=== PATIENT | male | born 1945 | race Caucasian/White ===

== ENCOUNTER → 2017-08-21 | Outpatient (CLI) | payer MEDICARE, BC, MEDICAID | END | disposition home or self-care (01) | LOC: C/S 10:57 | DX: J84.9 Interstitial pulmonary disease, unspecified (principal); J47.9 Bronchiectasis, uncomplicated; I27.20 Pulmonary hypertension, unspecified; K31.89 Other diseases of stomach and duodenum; M46.04 Spinal enthesopathy, thoracic region; D18.09 Hemangioma of other sites | CPT/HCPCS: 71250 ==

== ENCOUNTER 2017-10-05 19:14 | Emergency (ER) | payer MEDICARE, BC ==
[2017-10-05] MEDS: KETOROLAC 15 MG INJ IM (21:24)
== END 2017-10-06 02:09 | disposition home or self-care (01) ==
LOC: E/R 10-06 02:09
DX: J81.1 Chronic pulmonary edema (principal); I10 Essential (primary) hypertension; R40.2142 Coma scale, eyes open, spontaneous, at arrival to emergency department; R40.2362 Coma scale, best motor response, obeys commands, at arrival to emergency department; Z93.0 Tracheostomy status
CPT/HCPCS: 71045; 94002; 94003; 96372; 99284-25

== ENCOUNTER 2017-11-08 22:25 | Inpatient (IN) | payer BC, MEDICARE ==
[2017-11-08 23:34] LABS: ADD MAN DIFF? NO
[2017-11-08 23:39] LABS: BASOPHIL # 0.1 10^3/ul (0.0-0.1); BASOPHILS % 1.1 % (0.0-2.0); EOSINOPHILS # 0.7 10^3/ul (0.0-0.5); EOSINOPHILS % 7.3 % (0.0-7.0); HEMOGLOBIN 10.9 g/dl (14.0-18.0); LYMPHOCYTES # 1.8 10^3/ul (0.8-2.9); LYMPHOCYTES % 20.1 % (15.0-51.0); MEAN CORPUSCULAR HEMOGLOBIN 29.1 pg (29.0-33.0); MEAN CORPUSCULAR HGB CONC 34.1 g/dl (32.0-37.0); MEAN CORPUSCULAR VOLUME 85.6 fl (82.0-101.0); MONOCYTE # 0.7 10^3/ul (0.3-0.9); MONOCYTES % 7.3 % (0.0-11.0); NEUTROPHIL # 5.8 10^3/ul (1.6-7.5); NEUTROPHILS % 63.8 % (39.0-77.0); PLATELET COUNT 248 10^3/UL (140-415); RED BLOOD COUNT 3.74 10^6/ul (4.70-6.10); RED CELL DISTRIBUTION WIDTH 14.6 % (11.5-14.5)
[2017-11-08 23:45] LABS: Allen Test ACCEPTAB; Arterial Blood Gas Oxygen Sat 98.7 mmHG (95.0-100.0); Arterial COHb 0.1 % (0.0-3.0); Arterial HCO3 26.7 mmol/L (22.0-26.0); Arterial MetHb 0.6 % (0.0-1.5); Arterial Total Hemglobin 11.2 g/dl (12.0-18.0); Arterial pCO2 37.3 mmhg (35-45); MODE VENT - AC; Site Right Radial
[2017-11-08 23:59] LABS: INR 1.01; PROTIME 13.4 Sec (11.9-14.9)
[2017-11-09] LABS: ALANINE AMINOTRANSFERASE 24 IU/L (13-69); ALBUMIN 4.3 g/dl (3.3-4.9); ALBUMIN/GLOBULIN RATIO 1.13; ALKALINE PHOSPHATASE 131 IU/L (42-121); ANION GAP 17 (8-16); ASPARTATE AMINO TRANSFERASE 36 IU/L (15-46); BLOOD UREA NITROGEN 22 mg/dl (7-20); CALCIUM 10.1 mg/dl (8.4-10.2); CARBON DIOXIDE 30 mmol/L (21-31); CHLORIDE 94 mmol/L (97-110); CREATININE 1.01 mg/dl (0.61-1.24); GLUCOSE 114 mg/dl (70-220); LIPASE 158 U/L (23-300); POTASSIUM 4.7 mmol/L (3.5-5.1); SODIUM 136 mmol/L (135-144); TOTAL PROTEIN 8.1 g/dl (6.1-8.1)
[2017-11-09 00:01] LABS: PARTIAL THROMBOPLASTIN TIME 44.7 Sec (25.0-35.0)
[2017-11-09] MEDS: PIPER-TAZO 3.375 GM IV (PMX) 100 ML IVPB ×4 (01:59→23:54)
[2017-11-09] MEDS ORDERED: NACL 0.9% 3 ML SYG IV (12:00)
[2017-11-09] MEDS ORDERED: ONDANSETRON 4 MG INJ IV (12:00)
[2017-11-09] MEDS ORDERED: ACETAMINOPHEN 160 MG/5ML CUP (17:28)
[2017-11-09] MEDS: ACETAMINOPHEN 325 MG TAB PO (17:35)
[2017-11-09] MEDS: FAMOTIDINE 20 MG INJ IV (20:04)
[2017-11-10 05:42] LABS: ADD MAN DIFF? NO
[2017-11-10 05:45] LABS: WHITE BLOOD COUNT 8.9 10^3/ul (4.8-10.8)
[2017-11-10 05:45] LABS: BASOPHIL # 0.1 10^3/ul (0.0-0.1); BASOPHILS % 1.1 % (0.0-2.0); EOSINOPHILS # 0.6 10^3/ul (0.0-0.5); EOSINOPHILS % 6.4 % (0.0-7.0); HEMATOCRIT 31.6 % (42.0-52.0); HEMOGLOBIN 10.8 g/dl (14.0-18.0); LYMPHOCYTES # 1.6 10^3/ul (0.8-2.9); LYMPHOCYTES % 17.8 % (15.0-51.0); MEAN CORPUSCULAR HEMOGLOBIN 29.1 pg (29.0-33.0); MEAN CORPUSCULAR HGB CONC 34.2 g/dl (32.0-37.0); MEAN CORPUSCULAR VOLUME 85.2 fl (82.0-101.0); MEAN PLATELET VOLUME 9.3 fl (7.4-10.4); MONOCYTE # 0.6 10^3/ul (0.3-0.9); NEUTROPHILS % 67.5 % (39.0-77.0); PLATELET COUNT 260 10^3/UL (140-415); RED BLOOD COUNT 3.71 10^6/ul (4.70-6.10); RED CELL DISTRIBUTION WIDTH 14.6 % (11.5-14.5)
[2017-11-10] MEDS: PIPER-TAZO 3.375 GM IV (PMX) 100 ML IVPB ×3 (06:06→18:28)
[2017-11-10 07:30] LABS: ALANINE AMINOTRANSFERASE 31 IU/L (13-69); ALBUMIN 4.2 g/dl (3.3-4.9); ALBUMIN/GLOBULIN RATIO 1.13; ALKALINE PHOSPHATASE 122 IU/L (42-121); ANION GAP 18 (8-16); ASPARTATE AMINO TRANSFERASE 35 IU/L (15-46); BLOOD UREA NITROGEN 19 mg/dl (7-20); CALCIUM 10.2 mg/dl (8.4-10.2); CARBON DIOXIDE 24 mmol/L (21-31); CHLORIDE 98 mmol/L (97-110); CREATININE 0.86 mg/dl (0.61-1.24); GLUCOSE 103 mg/dl (70-220); POTASSIUM 4.2 mmol/L (3.5-5.1); SODIUM 136 mmol/L (135-144); TOTAL PROTEIN 7.9 g/dl (6.1-8.1)
[2017-11-10] MEDS: FAMOTIDINE 20 MG INJ IV ×2 (09:16→22:22)
[2017-11-10] MEDS: ENOXAPARIN 30 MG/0.3 ML SYG SC (09:16)
[2017-11-10] MEDS: ACETAMINOPHEN 325 MG TAB PO (15:27)
[2017-11-10] MEDS: morphine 2 MG INJ IV (22:23)
[2017-11-11] MEDS: PIPER-TAZO 3.375 GM IV (PMX) 100 ML IVPB ×5 (00:03→23:43)
[2017-11-11] MEDS: ENOXAPARIN 30 MG/0.3 ML SYG SC (08:27)
[2017-11-11] MEDS: FAMOTIDINE 20 MG INJ IV ×2 (08:27→20:15)
[2017-11-11 14:13] LABS: ADD MAN DIFF? NO
[2017-11-11 14:14] LABS: BASOPHIL # 0.1 10^3/ul (0.0-0.1); BASOPHILS % 0.6 % (0.0-2.0); EOSINOPHILS # 0.4 10^3/ul (0.0-0.5); EOSINOPHILS % 3.6 % (0.0-7.0); HEMATOCRIT 28.8 % (42.0-52.0); HEMOGLOBIN 9.9 g/dl (14.0-18.0); LYMPHOCYTES # 1.2 10^3/ul (0.8-2.9); LYMPHOCYTES % 12.5 % (15.0-51.0); MEAN CORPUSCULAR HEMOGLOBIN 29.8 pg (29.0-33.0); MEAN CORPUSCULAR HGB CONC 34.4 g/dl (32.0-37.0); MEAN CORPUSCULAR VOLUME 86.7 fl (82.0-101.0); MEAN PLATELET VOLUME 9.1 fl (7.4-10.4); MONOCYTE # 0.7 10^3/ul (0.3-0.9); MONOCYTES % 6.9 % (0.0-11.0); NEUTROPHIL # 7.4 10^3/ul (1.6-7.5); NEUTROPHILS % 76.1 % (39.0-77.0); PLATELET COUNT 244 10^3/UL (140-415); RED BLOOD COUNT 3.32 10^6/ul (4.70-6.10); RED CELL DISTRIBUTION WIDTH 14.7 % (11.5-14.5)
[2017-11-11 14:14] LABS: WHITE BLOOD COUNT 9.7 10^3/ul (4.8-10.8)
[2017-11-11 14:30] LABS: ANION GAP 15 (8-16); BLOOD UREA NITROGEN 16 mg/dl (7-20); CALCIUM 9.7 mg/dl (8.4-10.2); CARBON DIOXIDE 28 mmol/L (21-31); CHLORIDE 98 mmol/L (97-110); CREATININE 0.83 mg/dl (0.61-1.24); GLUCOSE 114 mg/dl (70-220); POTASSIUM 3.7 mmol/L (3.5-5.1); SODIUM 137 mmol/L (135-144)
[2017-11-11] MEDS: VANCOMYCIN HCL 250 MG/5ML POSYG PO ×2 (17:50→23:43)
[2017-11-11] MEDS: ACETAMINOPHEN 325 MG TAB PO (21:43)
[2017-11-12] MEDS: VANCOMYCIN HCL 250 MG/5ML POSYG PO ×3 (06:01→17:33)
[2017-11-12] MEDS: PIPER-TAZO 3.375 GM IV (PMX) 100 ML IVPB ×2 (06:01→12:45)
[2017-11-12 06:04] LABS: ADD MAN DIFF? NO
[2017-11-12 06:07] LABS: WHITE BLOOD COUNT 7.6 10^3/ul (4.8-10.8)
[2017-11-12 06:07] LABS: BASOPHIL # 0.1 10^3/ul (0.0-0.1); EOSINOPHILS # 0.6 10^3/ul (0.0-0.5); EOSINOPHILS % 7.5 % (0.0-7.0); HEMATOCRIT 29.4 % (42.0-52.0); HEMOGLOBIN 9.8 g/dl (14.0-18.0); LYMPHOCYTES # 1.6 10^3/ul (0.8-2.9); LYMPHOCYTES % 20.4 % (15.0-51.0); MEAN CORPUSCULAR HGB CONC 33.3 g/dl (32.0-37.0); MEAN PLATELET VOLUME 9.7 fl (7.4-10.4); MONOCYTE # 0.7 10^3/ul (0.3-0.9); MONOCYTES % 8.6 % (0.0-11.0); NEUTROPHIL # 4.8 10^3/ul (1.6-7.5); NEUTROPHILS % 62.2 % (39.0-77.0); PLATELET COUNT 246 10^3/UL (140-415); RED BLOOD COUNT 3.38 10^6/ul (4.70-6.10); RED CELL DISTRIBUTION WIDTH 14.6 % (11.5-14.5)
[2017-11-12 06:33] LABS: ANION GAP 16 (8-16); BLOOD UREA NITROGEN 15 mg/dl (7-20); CALCIUM 9.8 mg/dl (8.4-10.2); CARBON DIOXIDE 28 mmol/L (21-31); CHLORIDE 101 mmol/L (97-110); CREATININE 0.79 mg/dl (0.61-1.24); GLUCOSE 97 mg/dl (70-220); POTASSIUM 3.8 mmol/L (3.5-5.1); SODIUM 141 mmol/L (135-144)
[2017-11-12] MEDS: FAMOTIDINE 20 MG INJ IV ×2 (09:20→19:50)
[2017-11-12] MEDS: ENOXAPARIN 30 MG/0.3 ML SYG SC (09:25)
[2017-11-12] MEDS: CEFTRIAXONE 1 GM/50 ML (PMX) 50 ML IVPB (17:33)
[2017-11-12] MEDS: ACETAMINOPHEN 325 MG TAB PO (19:50)
[2017-11-13] MEDS: VANCOMYCIN HCL 250 MG/5ML POSYG PO ×4 (01:05→17:45)
[2017-11-13 07:02] LABS: ADD MAN DIFF? NO
[2017-11-13 07:05] LABS: BASOPHIL # 0.1 10^3/ul (0.0-0.1); EOSINOPHILS # 0.6 10^3/ul (0.0-0.5); EOSINOPHILS % 8.6 % (0.0-7.0); HEMATOCRIT 28.4 % (42.0-52.0); HEMOGLOBIN 9.5 g/dl (14.0-18.0); LYMPHOCYTES # 1.4 10^3/ul (0.8-2.9); LYMPHOCYTES % 20.9 % (15.0-51.0); MEAN CORPUSCULAR HEMOGLOBIN 29.1 pg (29.0-33.0); MEAN CORPUSCULAR HGB CONC 33.5 g/dl (32.0-37.0); MEAN CORPUSCULAR VOLUME 86.9 fl (82.0-101.0); MEAN PLATELET VOLUME 9.6 fl (7.4-10.4); MONOCYTE # 0.6 10^3/ul (0.3-0.9); MONOCYTES % 9.2 % (0.0-11.0); NEUTROPHIL # 4.1 10^3/ul (1.6-7.5); PLATELET COUNT 261 10^3/UL (140-415); RED BLOOD COUNT 3.27 10^6/ul (4.70-6.10); RED CELL DISTRIBUTION WIDTH 14.6 % (11.5-14.5)
[2017-11-13 07:05] LABS: WHITE BLOOD COUNT 6.8 10^3/ul (4.8-10.8)
[2017-11-13 07:26] LABS: ANION GAP 14 (8-16); BLOOD UREA NITROGEN 13 mg/dl (7-20); CALCIUM 9.6 mg/dl (8.4-10.2); CARBON DIOXIDE 29 mmol/L (21-31); CHLORIDE 101 mmol/L (97-110); CREATININE 0.74 mg/dl (0.61-1.24); GLUCOSE 104 mg/dl (70-220); POTASSIUM 3.6 mmol/L (3.5-5.1); SODIUM 140 mmol/L (135-144)
[2017-11-13] MEDS: FAMOTIDINE 20 MG INJ IV ×2 (09:34→20:47)
[2017-11-13] MEDS: ENOXAPARIN 30 MG/0.3 ML SYG SC (09:39)
[2017-11-13] MEDS: PROPOFOL 60 ML (13:00)
[2017-11-13] MEDS: CEFTRIAXONE 1 GM/50 ML (PMX) 50 ML IVPB (17:45)
[2017-11-14] MEDS ORDERED: ALBUTEROL/IPRATROPIUM (NEB) 3 ML AMP HHN (01:30)
[2017-11-14] MEDS: GUAIFENESIN/DM 5ML CUP PO ×2 (01:43→21:40)
[2017-11-14] MEDS: morphine 2 MG INJ IV ×2 (01:43→21:40)
[2017-11-14] MEDS: VANCOMYCIN HCL 250 MG/5ML POSYG PO ×4 (06:38→17:20)
[2017-11-14] MEDS: FAMOTIDINE 20 MG INJ IV ×2 (09:08→21:40)
[2017-11-14] MEDS: ENOXAPARIN 30 MG/0.3 ML SYG SC (09:12)
[2017-11-14 09:28] LABS: ADD MAN DIFF? NO
[2017-11-14 09:30] LABS: BASOPHIL # 0.1 10^3/ul (0.0-0.1); BASOPHILS % 1.2 % (0.0-2.0); EOSINOPHILS # 0.4 10^3/ul (0.0-0.5); EOSINOPHILS % 6.7 % (0.0-7.0); HEMATOCRIT 32.2 % (42.0-52.0); HEMOGLOBIN 10.6 g/dl (14.0-18.0); LYMPHOCYTES # 1.2 10^3/ul (0.8-2.9); LYMPHOCYTES % 20.4 % (15.0-51.0); MEAN CORPUSCULAR HGB CONC 32.9 g/dl (32.0-37.0); MEAN CORPUSCULAR VOLUME 88.2 fl (82.0-101.0); MEAN PLATELET VOLUME 9.3 fl (7.4-10.4); MONOCYTE # 0.5 10^3/ul (0.3-0.9); MONOCYTES % 8.9 % (0.0-11.0); NEUTROPHIL # 3.8 10^3/ul (1.6-7.5); NEUTROPHILS % 62.5 % (39.0-77.0); PLATELET COUNT 277 10^3/UL (140-415); RED BLOOD COUNT 3.65 10^6/ul (4.70-6.10); RED CELL DISTRIBUTION WIDTH 14.3 % (11.5-14.5)
[2017-11-14 09:30] LABS: WHITE BLOOD COUNT 6.1 10^3/ul (4.8-10.8)
[2017-11-14 09:56] LABS: ANION GAP 21 (8-16); BLOOD UREA NITROGEN 15 mg/dl (7-20); CALCIUM 10.5 mg/dl (8.4-10.2); CARBON DIOXIDE 25 mmol/L (21-31); CHLORIDE 103 mmol/L (97-110); CREATININE 0.79 mg/dl (0.61-1.24); GLUCOSE 81 mg/dl (70-220); POTASSIUM 3.8 mmol/L (3.5-5.1); SODIUM 145 mmol/L (135-144)
[2017-11-14] MEDS: CEFTRIAXONE 1 GM/50 ML (PMX) 50 ML IVPB (17:20)
[2017-11-15] MEDS: VANCOMYCIN HCL 250 MG/5ML POSYG PO ×5 (00:43→23:08)
[2017-11-15 06:09] LABS: ADD MAN DIFF? NO
[2017-11-15 06:10] LABS: BASOPHIL # 0.1 10^3/ul (0.0-0.1); BASOPHILS % 1.5 % (0.0-2.0); EOSINOPHILS # 0.5 10^3/ul (0.0-0.5); EOSINOPHILS % 7.5 % (0.0-7.0); HEMATOCRIT 31.9 % (42.0-52.0); HEMOGLOBIN 10.5 g/dl (14.0-18.0); LYMPHOCYTES # 1.7 10^3/ul (0.8-2.9); LYMPHOCYTES % 25.9 % (15.0-51.0); MEAN CORPUSCULAR HEMOGLOBIN 29.1 pg (29.0-33.0); MEAN CORPUSCULAR HGB CONC 32.9 g/dl (32.0-37.0); MEAN CORPUSCULAR VOLUME 88.4 fl (82.0-101.0); MEAN PLATELET VOLUME 9.8 fl (7.4-10.4); MONOCYTE # 0.6 10^3/ul (0.3-0.9); MONOCYTES % 8.9 % (0.0-11.0); NEUTROPHIL # 3.7 10^3/ul (1.6-7.5); NEUTROPHILS % 55.9 % (39.0-77.0); PLATELET COUNT 284 10^3/UL (140-415); RED BLOOD COUNT 3.61 10^6/ul (4.70-6.10); RED CELL DISTRIBUTION WIDTH 14.4 % (11.5-14.5)
[2017-11-15 06:10] LABS: WHITE BLOOD COUNT 6.6 10^3/ul (4.8-10.8)
[2017-11-15 06:34] LABS: ANION GAP 21 (8-16); BLOOD UREA NITROGEN 20 mg/dl (7-20); CARBON DIOXIDE 25 mmol/L (21-31); CHLORIDE 102 mmol/L (97-110); GLUCOSE 67 mg/dl (70-220); POTASSIUM 4.1 mmol/L (3.5-5.1); SODIUM 144 mmol/L (135-144)
[2017-11-15] MEDS: FAMOTIDINE 20 MG INJ IV ×2 (09:13→20:35)
[2017-11-15] MEDS: ENOXAPARIN 30 MG/0.3 ML SYG SC (09:15)
[2017-11-15] MEDS: GUAIFENESIN/DM 5ML CUP PO ×3 (12:25→23:03)
[2017-11-15] MEDS: CEFTRIAXONE 1 GM/50 ML (PMX) 50 ML IVPB (16:11)
[2017-11-16] MEDS: GUAIFENESIN/DM 5ML CUP PO ×2 (06:14→20:52)
[2017-11-16] MEDS: VANCOMYCIN HCL 250 MG/5ML POSYG PO ×3 (06:16→18:36)
[2017-11-16] MEDS: FAMOTIDINE 20 MG INJ IV ×2 (08:16→20:52)
[2017-11-16] MEDS: ENOXAPARIN 30 MG/0.3 ML SYG SC (08:19)
[2017-11-16 08:29] LABS: ADD MAN DIFF? NO
[2017-11-16 08:33] LABS: BASOPHIL # 0.1 10^3/ul (0.0-0.1); BASOPHILS % 1.3 % (0.0-2.0); EOSINOPHILS # 0.4 10^3/ul (0.0-0.5); EOSINOPHILS % 6.7 % (0.0-7.0); HEMATOCRIT 30.2 % (42.0-52.0); HEMOGLOBIN 10.1 g/dl (14.0-18.0); LYMPHOCYTES # 1.6 10^3/ul (0.8-2.9); LYMPHOCYTES % 26.4 % (15.0-51.0); MEAN CORPUSCULAR HGB CONC 33.4 g/dl (32.0-37.0); MEAN CORPUSCULAR VOLUME 86.8 fl (82.0-101.0); MEAN PLATELET VOLUME 9.8 fl (7.4-10.4); MONOCYTE # 0.5 10^3/ul (0.3-0.9); MONOCYTES % 8.8 % (0.0-11.0); NEUTROPHIL # 3.5 10^3/ul (1.6-7.5); NEUTROPHILS % 56.5 % (39.0-77.0); PLATELET COUNT 257 10^3/UL (140-415); RED BLOOD COUNT 3.48 10^6/ul (4.70-6.10); RED CELL DISTRIBUTION WIDTH 14.4 % (11.5-14.5)
[2017-11-16 08:33] LABS: WHITE BLOOD COUNT 6.1 10^3/ul (4.8-10.8)
[2017-11-16 08:52] LABS: ANION GAP 14 (8-16); BLOOD UREA NITROGEN 16 mg/dl (7-20); CALCIUM 10.1 mg/dl (8.4-10.2); CARBON DIOXIDE 28 mmol/L (21-31); CHLORIDE 100 mmol/L (97-110); CREATININE 0.73 mg/dl (0.61-1.24); GLUCOSE 104 mg/dl (70-220); POTASSIUM 3.7 mmol/L (3.5-5.1); SODIUM 138 mmol/L (135-144)
[2017-11-16] MEDS: CEFTRIAXONE 1 GM/50 ML (PMX) 50 ML IVPB (16:58)
[2017-11-17] MEDS: VANCOMYCIN HCL 250 MG/5ML POSYG PO ×4 (00:23→17:42)
[2017-11-17 06:35] LABS: ADD MAN DIFF? NO
[2017-11-17 06:39] LABS: WHITE BLOOD COUNT 6.6 10^3/ul (4.8-10.8)
[2017-11-17 06:39] LABS: BASOPHIL # 0.1 10^3/ul (0.0-0.1); BASOPHILS % 1.2 % (0.0-2.0); EOSINOPHILS # 0.5 10^3/ul (0.0-0.5); EOSINOPHILS % 7.8 % (0.0-7.0); HEMATOCRIT 30.3 % (42.0-52.0); HEMOGLOBIN 10.3 g/dl (14.0-18.0); LYMPHOCYTES # 1.6 10^3/ul (0.8-2.9); LYMPHOCYTES % 24.6 % (15.0-51.0); MEAN CORPUSCULAR HEMOGLOBIN 29.7 pg (29.0-33.0); MEAN CORPUSCULAR VOLUME 87.3 fl (82.0-101.0); MEAN PLATELET VOLUME 9.8 fl (7.4-10.4); MONOCYTE # 0.6 10^3/ul (0.3-0.9); MONOCYTES % 8.8 % (0.0-11.0); NEUTROPHIL # 3.8 10^3/ul (1.6-7.5); NEUTROPHILS % 57.3 % (39.0-77.0); PLATELET COUNT 272 10^3/UL (140-415); RED BLOOD COUNT 3.47 10^6/ul (4.70-6.10); RED CELL DISTRIBUTION WIDTH 14.2 % (11.5-14.5)
[2017-11-17 07:07] LABS: ANION GAP 16 (8-16); BLOOD UREA NITROGEN 11 mg/dl (7-20); CARBON DIOXIDE 29 mmol/L (21-31); CHLORIDE 100 mmol/L (97-110); GLUCOSE 102 mg/dl (70-220); POTASSIUM 3.7 mmol/L (3.5-5.1); SODIUM 141 mmol/L (135-144)
[2017-11-17] MEDS: FAMOTIDINE 20 MG INJ IV ×2 (08:26→20:48)
[2017-11-17] MEDS: ENOXAPARIN 30 MG/0.3 ML SYG SC (08:34)
[2017-11-17] MEDS: CEFTRIAXONE 1 GM/50 ML (PMX) 50 ML IVPB (16:43)
[2017-11-17] MEDS: GUAIFENESIN/DM 5ML CUP PO (20:52)
[2017-11-18] MEDS: VANCOMYCIN HCL 250 MG/5ML POSYG PO ×4 (00:35→17:57)
[2017-11-18] MEDS: FAMOTIDINE 20 MG INJ IV ×2 (08:05→20:35)
[2017-11-18] MEDS: ENOXAPARIN 30 MG/0.3 ML SYG SC (08:06)
[2017-11-18] MEDS: GUAIFENESIN/DM 5ML CUP PO ×2 (08:46→20:35)
[2017-11-19] MEDS: VANCOMYCIN HCL 250 MG/5ML POSYG PO ×4 (05:53→17:25)
[2017-11-19] MEDS: FAMOTIDINE 20 MG INJ IV ×2 (09:09→20:32)
[2017-11-19] MEDS: GUAIFENESIN/DM 5ML CUP PO ×2 (09:10→20:32)
[2017-11-19] MEDS: ENOXAPARIN 30 MG/0.3 ML SYG SC (09:13)
[2017-11-20] MEDS: VANCOMYCIN HCL 250 MG/5ML POSYG PO ×4 (00:02→18:16)
[2017-11-20] MEDS: FAMOTIDINE 20 MG INJ IV ×2 (08:33→20:01)
[2017-11-20] MEDS: ENOXAPARIN 30 MG/0.3 ML SYG SC (08:38)
[2017-11-20] MEDS: GUAIFENESIN/DM 5ML CUP PO ×2 (15:01→20:01)
[2017-11-21] MEDS ORDERED: INFLUENZA VIRUS VACCINE 0.5 ML (DISPENSING) IM* (09:00)
== END 2017-11-20 21:20 | DRG 326 ==
LOC: E/R 22:25 → TEL 11-13 22:55 → ICU 11-10 01:35
PROC: 0DQ68ZZ Repair Stomach, Via Natural or Artificial Opening Endoscopic (ICD-10-PCS; principal; 2017-11-13 12:25)
PROC: 5A1955Z Respiratory Ventilation, Greater than 96 Consecutive Hours (ICD-10-PCS; 2017-11-13 12:25)
DX: K94.22 Gastrostomy infection (principal); J96.21 Acute and chronic respiratory failure with hypoxia; L03.311 Cellulitis of abdominal wall; I50.32 Chronic diastolic (congestive) heart failure; Z99.11 Dependence on respirator [ventilator] status; K94.29 Other complications of gastrostomy; I11.0 Hypertensive heart disease with heart failure; J84.10 Pulmonary fibrosis, unspecified; G40.909 Epilepsy, unspecified, not intractable, without status epilepticus; F03.90 Unspecified dementia, unspecified severity, without behavioral disturbance, psychotic disturbance, mood disturbance, and anxiety; J47.9 Bronchiectasis, uncomplicated; D64.9 Anemia, unspecified; E78.5 Hyperlipidemia, unspecified; K76.0 Fatty (change of) liver, not elsewhere classified; F10.21 Alcohol dependence, in remission
CPT/HCPCS: 36415; 36600; 71045; 74176; 80048; 80053; 82803; 83690; 85025; 85610; 85730; 87070; 87081; 94002; 94003; 94799; 96365; 96366; 96372; 96375; 96376; 97161; 99285-25

== ENCOUNTER 2017-12-20 12:16 | Inpatient (IN) | payer MEDICARE, BC ==
[2017-12-20 13:23] LABS: ADD MAN DIFF? NO
[2017-12-20 13:26] LABS: WHITE BLOOD COUNT 8.5 10^3/ul (4.8-10.8)
[2017-12-20 13:26] LABS: BASOPHIL # 0.1 10^3/ul (0.0-0.1); BASOPHILS % 0.9 % (0.0-2.0); EOSINOPHILS # 0.5 10^3/ul (0.0-0.5); EOSINOPHILS % 5.4 % (0.0-7.0); HEMATOCRIT 39.7 % (42.0-52.0); HEMOGLOBIN 13.1 g/dl (14.0-18.0); LYMPHOCYTES # 2.3 10^3/ul (0.8-2.9); LYMPHOCYTES % 26.9 % (15.0-51.0); MEAN CORPUSCULAR HEMOGLOBIN 29.4 pg (29.0-33.0); MEAN PLATELET VOLUME 10.1 fl (7.4-10.4); MONOCYTE # 0.6 10^3/ul (0.3-0.9); MONOCYTES % 7.1 % (0.0-11.0); NEUTROPHIL # 5.1 10^3/ul (1.6-7.5); NEUTROPHILS % 59.5 % (39.0-77.0); PLATELET COUNT 269 10^3/UL (140-415); RED BLOOD COUNT 4.46 10^6/ul (4.70-6.10); RED CELL DISTRIBUTION WIDTH 14.7 % (11.5-14.5)
[2017-12-20 14:39] LABS: ANION GAP 12 (8-16); BLOOD UREA NITROGEN 15 mg/dl (7-20); CALCIUM 9.8 mg/dl (8.4-10.2); CARBON DIOXIDE 28 mmol/L (21-31); CHLORIDE 101 mmol/L (97-110); CREATININE 0.63 mg/dl (0.61-1.24); GLUCOSE 93 mg/dl (70-220); POTASSIUM 4.4 mmol/L (3.5-5.1); SODIUM 137 mmol/L (135-144)
[2017-12-20] MEDS ORDERED: ONDANSETRON 4 MG INJ IV (15:30)
[2017-12-20] MEDS: ACETAMINOPHEN 325 MG TAB PO (19:31)
[2017-12-20] MEDS ORDERED: CEPASTAT LOZENGE MM (21:30)
[2017-12-21 07:10] LABS: ADD MAN DIFF? NO
[2017-12-21 07:12] LABS: WHITE BLOOD COUNT 8.2 10^3/ul (4.8-10.8)
[2017-12-21 07:12] LABS: BASOPHIL # 0.1 10^3/ul (0.0-0.1); BASOPHILS % 1.1 % (0.0-2.0); EOSINOPHILS # 0.4 10^3/ul (0.0-0.5); EOSINOPHILS % 4.6 % (0.0-7.0); HEMATOCRIT 34.2 % (42.0-52.0); HEMOGLOBIN 11.2 g/dl (14.0-18.0); LYMPHOCYTES # 1.5 10^3/ul (0.8-2.9); LYMPHOCYTES % 18.3 % (15.0-51.0); MEAN CORPUSCULAR HEMOGLOBIN 28.8 pg (29.0-33.0); MEAN CORPUSCULAR HGB CONC 32.7 g/dl (32.0-37.0); MEAN CORPUSCULAR VOLUME 87.9 fl (82.0-101.0); MEAN PLATELET VOLUME 9.5 fl (7.4-10.4); MONOCYTE # 0.6 10^3/ul (0.3-0.9); MONOCYTES % 6.7 % (0.0-11.0); NEUTROPHIL # 5.6 10^3/ul (1.6-7.5); NEUTROPHILS % 68.9 % (39.0-77.0); PLATELET COUNT 273 10^3/UL (140-415); RED BLOOD COUNT 3.89 10^6/ul (4.70-6.10); RED CELL DISTRIBUTION WIDTH 14.7 % (11.5-14.5)
[2017-12-21] MEDS: ALBUTEROL/IPRATROPIUM (NEB) 3 ML AMP NEB ×4 (08:00→20:00)
[2017-12-21] MEDS: FERROUS SULFATE (EC) 325 MG TAB PO (08:56)
[2017-12-21] MEDS: MAGNESIUM OXIDE 400 MG TAB PO ×2 (08:56→21:22)
[2017-12-21] MEDS: MULTIVITAMINS/MINERALS TAB PO (08:56)
[2017-12-21] MEDS: OCULAR LUBRICANT 3.5 GM OPH OINT BOTH EYES (08:56)
[2017-12-21] MEDS ORDERED: FERROUS SULFATE (EC) 325 MG TAB PO (09:00)
[2017-12-21] MEDS: ENOXAPARIN 40 MG/0.4 ML SYG SC (09:17)
[2017-12-21] MEDS: GUAIFENESIN/DM 5ML CUP PO (17:43)
[2017-12-21] MEDS ORDERED: GUAIFENESIN/DM (SR) TAB PO (18:00)
[2017-12-21] MEDS: ACETAMINOPHEN 325 MG TAB PO (19:59)
[2017-12-21] MEDS: LIDOCAINE 2% VISC 15 ML CUP PO (20:29)
[2017-12-21] MEDS: predniSONE 20 MG TAB GTB (21:23)
[2017-12-22] MEDS: OCULAR LUBRICANT 3.5 GM OPH OINT BOTH EYES ×3 (01:23→20:50)
[2017-12-22] MEDS: GUAIFENESIN/DM 5ML CUP PO ×3 (01:24→21:28)
[2017-12-22 06:08] LABS: AADO2 Arterial 100.8 mmHg (7.0-24.0); Allen Test ACCEPTAB; Arterial Base Excess 3.8 mmol/L (-3.0-3); Arterial Blood Gas Oxygen Sat 98.7 mmHG (95.0-100.0); Arterial COHb 0.3 % (0.0-3.0); Arterial Fraction of Oxyhgb 98.1 % (93.0-99.0); Arterial HCO3 28.5 mmol/L (22.0-26.0); Arterial MetHb 0.3 % (0.0-1.5); Arterial Total Hemglobin 12.3 g/dl (12.0-18.0); Arterial pCO2 43.1 mmhg (35-45); MODE VENT - AC; Site Right Radial
[2017-12-22 07:03] LABS: ADD MAN DIFF? NO
[2017-12-22 07:05] LABS: WHITE BLOOD COUNT 7.5 10^3/ul (4.8-10.8)
[2017-12-22 07:05] LABS: BASOPHILS % 0.5 % (0.0-2.0); EOSINOPHILS % 0.4 % (0.0-7.0); HEMATOCRIT 33.2 % (42.0-52.0); HEMOGLOBIN 10.9 g/dl (14.0-18.0); LYMPHOCYTES # 1.1 10^3/ul (0.8-2.9); LYMPHOCYTES % 14.3 % (15.0-51.0); MEAN CORPUSCULAR HEMOGLOBIN 28.8 pg (29.0-33.0); MEAN CORPUSCULAR HGB CONC 32.8 g/dl (32.0-37.0); MEAN CORPUSCULAR VOLUME 87.8 fl (82.0-101.0); MEAN PLATELET VOLUME 9.9 fl (7.4-10.4); MONOCYTE # 0.2 10^3/ul (0.3-0.9); MONOCYTES % 2.4 % (0.0-11.0); NEUTROPHIL # 6.2 10^3/ul (1.6-7.5); PLATELET COUNT 251 10^3/UL (140-415); RED BLOOD COUNT 3.78 10^6/ul (4.70-6.10); RED CELL DISTRIBUTION WIDTH 14.8 % (11.5-14.5)
[2017-12-22 07:28] LABS: ANION GAP 15 (8-16); BLOOD UREA NITROGEN 15 mg/dl (7-20); CALCIUM 9.4 mg/dl (8.4-10.2); CARBON DIOXIDE 27 mmol/L (21-31); CHLORIDE 100 mmol/L (97-110); CREATININE 0.57 mg/dl (0.61-1.24); GLUCOSE 129 mg/dl (70-220); POTASSIUM 4.7 mmol/L (3.5-5.1); SODIUM 137 mmol/L (135-144)
[2017-12-22] MEDS: ALBUTEROL/IPRATROPIUM (NEB) 3 ML AMP NEB ×4 (09:20→19:07)
[2017-12-22] MEDS: predniSONE 20 MG TAB GTB ×2 (09:44→20:51)
[2017-12-22] MEDS: FERROUS SULFATE (EC) 325 MG TAB PO (09:44)
[2017-12-22] MEDS: MAGNESIUM OXIDE 400 MG TAB PO ×2 (09:44→20:51)
[2017-12-22] MEDS: ENOXAPARIN 40 MG/0.4 ML SYG SC (09:50)
[2017-12-22] MEDS: MULTIVITAMINS/MINERALS TAB PO (09:50)
[2017-12-22] MEDS: LIDOCAINE 2% VISC 15 ML CUP PO ×3 (09:50→20:51)
[2017-12-23 06:33] LABS: ADD MAN DIFF? NO
[2017-12-23 06:39] LABS: WHITE BLOOD COUNT 8.5 10^3/ul (4.8-10.8)
[2017-12-23 06:39] LABS: BASOPHILS % 0.2 % (0.0-2.0); HEMATOCRIT 30.9 % (42.0-52.0); HEMOGLOBIN 10.1 g/dl (14.0-18.0); LYMPHOCYTES # 1.3 10^3/ul (0.8-2.9); LYMPHOCYTES % 15.7 % (15.0-51.0); MEAN CORPUSCULAR HEMOGLOBIN 28.5 pg (29.0-33.0); MEAN CORPUSCULAR HGB CONC 32.7 g/dl (32.0-37.0); MEAN CORPUSCULAR VOLUME 87.3 fl (82.0-101.0); MEAN PLATELET VOLUME 9.7 fl (7.4-10.4); MONOCYTE # 0.4 10^3/ul (0.3-0.9); MONOCYTES % 4.9 % (0.0-11.0); NEUTROPHIL # 6.7 10^3/ul (1.6-7.5); NEUTROPHILS % 78.7 % (39.0-77.0); PLATELET COUNT 250 10^3/UL (140-415); RED BLOOD COUNT 3.54 10^6/ul (4.70-6.10); RED CELL DISTRIBUTION WIDTH 14.8 % (11.5-14.5)
[2017-12-23 06:55] LABS: ANION GAP 14 (8-16); BLOOD UREA NITROGEN 16 mg/dl (7-20); CALCIUM 9.3 mg/dl (8.4-10.2); CARBON DIOXIDE 31 mmol/L (21-31); CHLORIDE 99 mmol/L (97-110); CREATININE 0.67 mg/dl (0.61-1.24); GLUCOSE 124 mg/dl (70-220); POTASSIUM 4.5 mmol/L (3.5-5.1); SODIUM 139 mmol/L (135-144)
[2017-12-23] MEDS: ALBUTEROL/IPRATROPIUM (NEB) 3 ML AMP NEB ×4 (08:04→19:51)
[2017-12-23] MEDS: LIDOCAINE 2% VISC 15 ML CUP PO ×3 (09:44→21:52)
[2017-12-23] MEDS: FERROUS SULFATE (EC) 325 MG TAB PO (09:45)
[2017-12-23] MEDS: predniSONE 20 MG TAB GTB ×2 (09:45→21:54)
[2017-12-23] MEDS: MULTIVITAMINS/MINERALS TAB PO (09:45)
[2017-12-23] MEDS: GUAIFENESIN/DM 5ML CUP PO ×3 (09:45→21:52)
[2017-12-23] MEDS: MAGNESIUM OXIDE 400 MG TAB PO ×2 (09:45→21:52)
[2017-12-23] MEDS: OCULAR LUBRICANT 3.5 GM OPH OINT BOTH EYES ×2 (09:45→21:54)
[2017-12-23] MEDS: ENOXAPARIN 40 MG/0.4 ML SYG SC (09:57)
[2017-12-24] MEDS: PANTOPRAZOLE (EC) 40 MG TAB PO (05:49)
[2017-12-24] MEDS: ALBUTEROL/IPRATROPIUM (NEB) 3 ML AMP NEB ×4 (07:50→19:21)
[2017-12-24 08:21] LABS: ADD MAN DIFF? NO
[2017-12-24 08:24] LABS: BASOPHILS % 0.1 % (0.0-2.0); EOSINOPHILS % 0.1 % (0.0-7.0); HEMATOCRIT 34.1 % (42.0-52.0); HEMOGLOBIN 11.1 g/dl (14.0-18.0); LYMPHOCYTES # 1.2 10^3/ul (0.8-2.9); LYMPHOCYTES % 17.3 % (15.0-51.0); MEAN CORPUSCULAR HEMOGLOBIN 29.1 pg (29.0-33.0); MEAN CORPUSCULAR HGB CONC 32.6 g/dl (32.0-37.0); MEAN CORPUSCULAR VOLUME 89.5 fl (82.0-101.0); MEAN PLATELET VOLUME 10.2 fl (7.4-10.4); MONOCYTE # 0.3 10^3/ul (0.3-0.9); MONOCYTES % 3.8 % (0.0-11.0); NEUTROPHIL # 5.5 10^3/ul (1.6-7.5); NEUTROPHILS % 78.1 % (39.0-77.0); PLATELET COUNT 274 10^3/UL (140-415); RED BLOOD COUNT 3.81 10^6/ul (4.70-6.10); RED CELL DISTRIBUTION WIDTH 14.8 % (11.5-14.5)
[2017-12-24 08:24] LABS: WHITE BLOOD COUNT 7.1 10^3/ul (4.8-10.8)
[2017-12-24] MEDS: OCULAR LUBRICANT 3.5 GM OPH OINT BOTH EYES ×2 (08:25→21:00)
[2017-12-24] MEDS: predniSONE 20 MG TAB GTB ×2 (08:26→21:37)
[2017-12-24] MEDS: MULTIVITAMINS/MINERALS TAB PO (08:26)
[2017-12-24] MEDS: FERROUS SULFATE (EC) 325 MG TAB PO (08:26)
[2017-12-24] MEDS: MAGNESIUM OXIDE 400 MG TAB PO ×2 (08:27→21:37)
[2017-12-24] MEDS: GUAIFENESIN/DM 5ML CUP PO ×3 (08:28→21:37)
[2017-12-24] MEDS: ENOXAPARIN 40 MG/0.4 ML SYG SC (08:28)
[2017-12-24] MEDS: LIDOCAINE 2% VISC 15 ML CUP PO ×3 (08:31→21:36)
[2017-12-24 08:51] LABS: ANION GAP 14 (8-16); BLOOD UREA NITROGEN 20 mg/dl (7-20); CALCIUM 9.4 mg/dl (8.4-10.2); CARBON DIOXIDE 31 mmol/L (21-31); CHLORIDE 99 mmol/L (97-110); CREATININE 0.64 mg/dl (0.61-1.24); GLUCOSE 118 mg/dl (70-220); POTASSIUM 4.9 mmol/L (3.5-5.1); SODIUM 139 mmol/L (135-144)
[2017-12-25] MEDS: PANTOPRAZOLE (EC) 40 MG TAB PO (06:19)
[2017-12-25] MEDS: LIDOCAINE 2% VISC 15 ML CUP PO ×3 (08:43→21:00)
[2017-12-25] MEDS: ENOXAPARIN 40 MG/0.4 ML SYG SC (08:43)
[2017-12-25] MEDS: predniSONE 20 MG TAB GTB ×2 (08:44→21:12)
[2017-12-25] MEDS: OCULAR LUBRICANT 3.5 GM OPH OINT BOTH EYES ×2 (08:44→21:20)
[2017-12-25] MEDS: FERROUS SULFATE (EC) 325 MG TAB PO (08:44)
[2017-12-25] MEDS: MULTIVITAMINS/MINERALS TAB PO (08:44)
[2017-12-25] MEDS: MAGNESIUM OXIDE 400 MG TAB PO ×2 (08:44→21:13)
[2017-12-25 09:39] LABS: ADD MAN DIFF? NO
[2017-12-25 09:44] LABS: WHITE BLOOD COUNT 10.2 10^3/ul (4.8-10.8)
[2017-12-25 09:44] LABS: BASOPHILS % 0.1 % (0.0-2.0); HEMATOCRIT 34.3 % (42.0-52.0); HEMOGLOBIN 11.4 g/dl (14.0-18.0); LYMPHOCYTES # 1.5 10^3/ul (0.8-2.9); LYMPHOCYTES % 14.4 % (15.0-51.0); MEAN CORPUSCULAR HEMOGLOBIN 29.5 pg (29.0-33.0); MEAN CORPUSCULAR HGB CONC 33.2 g/dl (32.0-37.0); MEAN CORPUSCULAR VOLUME 88.9 fl (82.0-101.0); MONOCYTE # 0.5 10^3/ul (0.3-0.9); MONOCYTES % 4.5 % (0.0-11.0); NEUTROPHIL # 8.3 10^3/ul (1.6-7.5); NEUTROPHILS % 80.6 % (39.0-77.0); PLATELET COUNT 283 10^3/UL (140-415); RED BLOOD COUNT 3.86 10^6/ul (4.70-6.10); RED CELL DISTRIBUTION WIDTH 14.8 % (11.5-14.5)
[2017-12-25 10:08] LABS: ANION GAP 13 (8-16); BLOOD UREA NITROGEN 21 mg/dl (7-20); CALCIUM 9.4 mg/dl (8.4-10.2); CARBON DIOXIDE 31 mmol/L (21-31); CHLORIDE 99 mmol/L (97-110); CREATININE 0.69 mg/dl (0.61-1.24); GLUCOSE 109 mg/dl (70-220); POTASSIUM 4.7 mmol/L (3.5-5.1); SODIUM 138 mmol/L (135-144)
[2017-12-25] MEDS: GUAIFENESIN/DM 5ML CUP PO ×2 (11:21→21:12)
[2017-12-25] MEDS: IPRATROPIUM (HFA) 12.9 GM INHALER INH ×4 (11:25→19:44)
[2017-12-25] MEDS: ALBUTEROL HFA 8 GM INHALER INH ×4 (11:26→19:36)
[2017-12-26] MEDS: PANTOPRAZOLE (EC) 40 MG TAB PO (06:10)
[2017-12-26 06:28] LABS: ADD MAN DIFF? NO
[2017-12-26 06:33] LABS: BASOPHILS % 0.1 % (0.0-2.0); HEMATOCRIT 33.5 % (42.0-52.0); LYMPHOCYTES # 1.5 10^3/ul (0.8-2.9); MEAN CORPUSCULAR HEMOGLOBIN 28.9 pg (29.0-33.0); MEAN CORPUSCULAR HGB CONC 32.8 g/dl (32.0-37.0); MEAN CORPUSCULAR VOLUME 88.2 fl (82.0-101.0); MONOCYTE # 0.5 10^3/ul (0.3-0.9); MONOCYTES % 4.6 % (0.0-11.0); NEUTROPHIL # 9.2 10^3/ul (1.6-7.5); NEUTROPHILS % 81.9 % (39.0-77.0); PLATELET COUNT 264 10^3/UL (140-415); RED CELL DISTRIBUTION WIDTH 14.9 % (11.5-14.5)
[2017-12-26 06:33] LABS: WHITE BLOOD COUNT 11.2 10^3/ul (4.8-10.8)
[2017-12-26 06:51] LABS: ANION GAP 13 (8-16); BLOOD UREA NITROGEN 21 mg/dl (7-20); CALCIUM 9.2 mg/dl (8.4-10.2); CARBON DIOXIDE 31 mmol/L (21-31); CHLORIDE 99 mmol/L (97-110); CREATININE 0.68 mg/dl (0.61-1.24); GLUCOSE 120 mg/dl (70-220); POTASSIUM 4.8 mmol/L (3.5-5.1); SODIUM 138 mmol/L (135-144)
[2017-12-26] MEDS: IPRATROPIUM (HFA) 12.9 GM INHALER INH ×4 (08:00→19:47)
[2017-12-26] MEDS: FERROUS SULFATE (EC) 325 MG TAB PO (08:53)
[2017-12-26] MEDS: MULTIVITAMINS/MINERALS TAB PO (08:53)
[2017-12-26] MEDS: MAGNESIUM OXIDE 400 MG TAB PO ×2 (08:53→21:09)
[2017-12-26] MEDS: OCULAR LUBRICANT 3.5 GM OPH OINT BOTH EYES ×2 (08:53→21:00)
[2017-12-26] MEDS: LIDOCAINE 2% VISC 15 ML CUP PO ×3 (08:53→21:00)
[2017-12-26] MEDS: predniSONE 20 MG TAB GTB ×2 (08:54→21:09)
[2017-12-26] MEDS: ENOXAPARIN 40 MG/0.4 ML SYG SC (09:08)
[2017-12-26] MEDS: GUAIFENESIN/DM 5ML CUP PO ×3 (09:12→21:08)
[2017-12-26] MEDS: ALBUTEROL HFA 8 GM INHALER INH ×4 (09:47→19:47)
[2017-12-27] MEDS: PANTOPRAZOLE (EC) 40 MG TAB PO (05:51)
[2017-12-27] MEDS: ALBUTEROL/IPRATROPIUM (NEB) 3 ML AMP NEB ×2 (08:16→13:19)
[2017-12-27] MEDS: MULTIVITAMINS/MINERALS TAB PO (08:54)
[2017-12-27] MEDS: FERROUS SULFATE (EC) 325 MG TAB PO (08:54)
[2017-12-27] MEDS: MAGNESIUM OXIDE 400 MG TAB PO (08:58)
[2017-12-27] MEDS: LIDOCAINE 2% VISC 15 ML CUP PO ×2 (08:58→12:10)
[2017-12-27] MEDS: OCULAR LUBRICANT 3.5 GM OPH OINT BOTH EYES (08:59)
[2017-12-27] MEDS: predniSONE 20 MG TAB GTB (08:59)
[2017-12-27] MEDS: ENOXAPARIN 40 MG/0.4 ML SYG SC (09:07)
[2017-12-27] MEDS: GUAIFENESIN/DM 5ML CUP PO (15:01)
== END 2017-12-27 18:48 | DRG 154 ==
LOC: E/R 12:16 → TEL 15:10
PROVIDERS: Internal Medicine
PROC: 5A1955Z Respiratory Ventilation, Greater than 96 Consecutive Hours (ICD-10-PCS; principal; 2017-12-20)
DX: J38.7 Other diseases of larynx (principal); J18.9 Pneumonia, unspecified organism; F03.91 Unspecified dementia, unspecified severity, with behavioral disturbance; Z99.11 Dependence on respirator [ventilator] status; J96.12 Chronic respiratory failure with hypercapnia; J96.11 Chronic respiratory failure with hypoxia; J84.10 Pulmonary fibrosis, unspecified; R13.10 Dysphagia, unspecified; I10 Essential (primary) hypertension; G40.909 Epilepsy, unspecified, not intractable, without status epilepticus; Z93.0 Tracheostomy status; J47.9 Bronchiectasis, uncomplicated
CPT/HCPCS: 36600; 70490; 71250; 80048; 82803; 85025; 87081; 92610; 94002; 94003; 94640; 99285-25; G0378